=== PATIENT | female | born 2000 | race Caucasian/White ===

== ENCOUNTER → 2019-10-22 15:50 | Outpatient (CLI) | payer OTHER, MEDICAID, SELFPAY ==
[2019-10-22 17:47] LABS: Add Manual Diff / Slide Review NO; Basophils Absolute Auto 100 /uL (0-100); Basophils Percent Auto 0.5 % (0-2); Eosinophils Absolute Auto 300 /uL (0-450); Eosinophils Percent Auto 3.1 % (2-4); Hematocrit 41.3 % (36-46); Hemoglobin 13.9 g/dL (12.0-16.0); Lymphocytes Absolute Auto 2900 /uL (1100-4500); Lymphocytes Percent Auto 28.4 % (25-40); Mean Corpuscular HGB Conc 33.7 % (30-36); Mean Corpuscular Hemoglobin 29.6 PG (26-34); Mean Corpuscular Volume 87.6 fL (80-100); Monocytes Absolute Auto 900 /uL (0-900); Monocytes Percent Auto 8.9 % (3-14); Neutrophils Absolute Auto 6100 /uL (1500-7000); Neutrophils Percent Auto 59.1 % (50-75); Platelet Count 302 X10^3/uL (150-400); Red Blood Cell Count 4.72 X10^6/uL (4.0-5.2); Red Cell Distribution Width 13.5 % (11.6-14.8); White Blood Cell Count 10.3 X10^3/uL (4.5-11.0)
[2019-10-22 17:52] LABS: Hemoglobin A1C% w Est Avg Glu 4.9 % (4.0-6.0)
[2019-10-22 18:54] LABS: Vitamin D 25 Hydroxy (D3) 13.9 ng/mL (30.0-100.0)
[2019-10-22 19:08] LABS: TSH w/ Reflex to FT4 3.37 uIU/mL (0.47-4.68)
== END ==
PROVIDERS: PCP Registered Nurse Diabetes Educator; Referring Provider Registered Nurse Diabetes Educator; Visit Provider Registered Nurse Diabetes Educator
DX: R63.5 Abnormal weight gain (principal); Z83.3 Family history of diabetes mellitus
CPT/HCPCS: 36415; 82306; 83036; 84443; 85025

== ENCOUNTER 2020-01-06 11:38 | Emergency (ER) | payer OTHER, MEDICAID, SELFPAY ==
[2020-01-06] VITALS (8 sets, daily range): BP systolic 110–143; BP diastolic 69–83; PULSE 73–96; RESP 16–18; TEMP 36.5; O2SAT 96–100; BMI 34.3
--- NOTE | 2020-01-06 12:37 | DI.CT.S_ITS ---
PROCEDURE: CT ABDOMEN PELVIS W CON INDICATIONS: RLQ pain with fever TECHNIQUE: After the administration of intravenous contrast, 5 mm thick sections acquired from the diaphragm to the symphysis. 5 mm coronal and sagittal reformats were acquired. For radiation dose reduction, the following was used: automated exposure control, adjustment of mA and/or kV according to patient size. COMPARISON: None. FINDINGS: Image quality: Excellent. ABDOMEN: Lung bases: Lung bases are clear. Heart size is normal. Solid organs: Very small portion of the hepatic dome excluded from the field of view. Liver is otherwise normal in size and enhancement. Unremarkable appearance of the gallbladder. Biliary system is non dilated. Pancreas enhances normally. Spleen is normal in size and enhancement. No adrenal nodules. Kidneys demonstrate normal size and enhancement, without hydronephrosis. Peritoneum and bowel: Bowel loops demonstrate normal wall thickness and caliber. Very mild fatty stranding along the anterior margin of the cecum and ascending colon. Appendix is normal in caliber. No free fluid or air. Nodes and vessels: No retroperitoneal or mesenteric adenopathy by size criteria. Aorta and inferior vena cava are normal in size. Miscellaneous: No ventral hernias. PELVIS: Genitourinary: Bladder wall thickness is normal. Unremarkable appearance of the uterus and ovaries. Miscellaneous: No inguinal hernias or adenopathy. Bones: No suspicious bony lesions. No vertebral body compression fractures. IMPRESSION: No evidence of acute appendicitis. Very mild fatty stranding along the anterior margin of the cecum and ascending colon. This could represent very mild or early colitis. Dictated by: Eusebio Page M.D. on 01/06/2020 at 12:50 Approved by: Eusebio Page M.D. on 01/06/2020 at 12:54
--- NOTE | 2020-01-06 12:40 | ED.ABDPAIN ---
HPI - Abdominal Pain General Chief Complaint: Abdominal Pain Stated Complaint: sharp pain rt side diarrhea, nausea/ fever Time Seen by Provider: 01/06/20 11:59 Source: patient Mode of arrival: Ambulatory Limitations: no limitations History of Present Illness HPI narrative: Patient is a 19-year-old female who presents with right lower quadrant pain which started yesterday. Last evening she noticed low-grade fever now she is actually in quite a bit of pain. She has not taken anything for pain or fever she is currently afebrile here. Pain started sort of in her middle abdomen is now very in her right lower quadrant. She feels a little nauseated but no vomiting she had 1 episode of diarrhea this morning. MD complaint: abdominal pain Onset (ago): day(s) Pain Consistency: constant Location: RLQ Severity: moderate Quality: cramping and aching Radiation: none Relieving factors: nothing Exacerbating factors: nothing Related Data Previous Rx's Medication Instructions Recorded levonorgestrel 0.15 mg-ethinyl 1 tab PO DAILY #91 each 10/25/18 estradiol 30 mcg tablets,3 mos pack(91) ergocalciferol (vitamin D2) 1,250 1,250 mcg PO QWEEK #12 cap 10/23/19 mcg (50,000 unit) capsule ciprofloxacin HCl [Cipro] 500 mg PO BID #14 tab 01/06/20 metronidazole [Flagyl] 500 mg PO TID #21 tab 01/06/20 Allergies Allergy/AdvReac Type Severity Reaction Status Date / Time pineapple Allergy Intermediate swollen Verified 10/22/19 14:56 tongue Review of Systems Review of Systems Narrative: GENERAL: Denies chills, fatigue, malaise, fever, sweats, travel HEENT: Denies sinus pain, ear pain, sore throat, difficulty swallowing, neck pain RESPIRATORY: Denies dyspnea, cough, wheezing, hemoptysis, sputum. CARDIOVASCULAR: Denies chest pain, palpitations, orthopnea, edema GASTROINTESTINAL: See HPI : Denies dysuria, frequency, incontinence, hematuria, urinary retention, flank pain. MUSCULOSKELETAL: Denies weakness, joint pain, or bony pain SKIN: No rash, no erythema, no pruritus NEUROLOGIC: Denies weakness, dizziness, headache, numbness, change in speech, confusion PSYCHIATRIC: No concerning psychosocial issues. 12 point review of systems is negative except for those stated above and HPI Patient History Medical History Acne (Chronic ~2013) Allergies (Chronic ~2014) Ankle pain (Chronic ~2017) Anxiety (Chronic ~2011) Depression (Chronic ~2011) Family history of diabetes mellitus (Acute) Heavy menstrual period (Chronic ~2014) Painful menstrual periods (Chronic ~2014) Vitamin D deficiency (Acute) Weight gain (Acute) Surgical History Anesthesia (Resolved) History of oral surgery (Resolved ~2013) Family History Father History of heart disease Mother Diabetes mellitus History of heart disease Mental health problem Fibromyalgia Brother Autism Grandfather Diabetes mellitus Hypertension Social History Smoking Status: Current some day smoker second hand exposure: Yes (couple times per week) alcohol intake: current (1-2x/month) substance use type: marijuana (A couple times a month) Smoking Status: Current some day smoker alcohol intake frequency: a few times a week Substance Use Type: marijuana Exam Initial Vital Signs Initial Vital Signs: Vital Signs Temperature 97.7 F 01/06/20 11:45 Pulse Rate 96 H 01/06/20 11:45 Respiratory Rate 16 01/06/20 11:45 Blood Pressure 143/74 H 01/06/20 11:45 Pulse Oximetry 100 01/06/20 11:45 GENERAL: Well-appearing, well-nourished and in no acute distress. HEENT: Head atraumatic,EOMI, pupils reactive, face symmetric, moist mucous membranes CARDIOVASCULAR: Regular rate and rhythm without murmurs, rubs or gallops. RESPIRATORY: Breath sounds equal bilaterally, no wheezes rales or rhonchi. ABDOMEN: Soft, tender right lower quadrant with some mild guarding : No CVA tenderness EXTREMITIES: Normal range of motion, no clubbing or edema. Neurovascularly intact NEUROLOGICAL: Alert and oriented x4.Normal gait and speech. SKIN: Warm, dry, no laceration, no petechiae, no rashes or lesions. Course Orders Ordered: ED Orders 01/06/20 11:51 Complete Blood Count AUTO DIFF Stat Comprehensive Metabolic Panel Stat Lipase Stat 01/06/20 12:37 CT abdomen pelvis w con Stat Discontinued Medications Sodium Chloride (Normal Saline 0.9%) 1,000 mls @ 150 mls/hr IV CONT MARIYA Last Admin: 01/06/20 12:48 Dose: 150 mls/hr Documented by: YOU Ketorolac Tromethamine (Toradol) 30 mg IV NOW ONE Stop: 01/06/20 12:37 Last Admin: 01/06/20 12:47 Dose: 30 mg Documented by: YOU Morphine Sulfate (Morphine) 2 mg IV NOW ONE Stop: 01/06/20 14:21 Last Admin: 01/06/20 14:23 Dose: 2 mg Documented by: YOU Vital Signs Vital signs: Vital Signs - 8 hr 01/06/20 11:45 01/06/20 11:57 01/06/20 12:00 Temperature 97.7 F Pulse Rate 96 H 85 87 Respiratory Rate 16 Blood Pressure 143/74 H 116/69 Pulse Oximetry 100 99 99 01/06/20 12:30 01/06/20 13:00 01/06/20 13:30 Temperature Pulse Rate 90 84 88 Respiratory Rate 17 17 Blood Pressure 120/82 122/76 128/83 Pulse Oximetry 96 97 99 01/06/20 14:00 01/06/20 14:30 Temperature Pulse Rate 73 79 Respiratory Rate 16 18 Blood Pressure 122/74 110/70 Pulse Oximetry 100 97 MDM - Abdominal Pain Lab Data Attestation: I reviewed the patient's lab results. Result diagrams: 01/06/20 11:51 01/06/20 11:51 Labs: Lab Results 01/06/20 01/06/20 Range/Units 11:51 11:51 WBC 10.3 (4.5-11.0) X10^3/uL RBC 4.51 (4.0-5.2) X10^6/uL Hgb 13.3 (12.0-16.0) g/dL Hct 39.3 (36-46) % MCV 87.1 (80-100) fL MCH 29.6 (26-34) PG MCHC 33.9 (30-36) % RDW 13.4 (11.6-14.8) % Plt Count 273 (150-400) X10^3/uL Neut % (Auto) 71.1 (50-75) % Lymph % (Auto) 20.2 L (25-40) % [place] % (Auto) 6.6 (3-14) % Eos % (Auto) 1.8 L (2-4) % Baso % (Auto) 0.3 (0-2) % Neut # (Auto) 7300 H (7548-2854) /uL Lymph # (Auto) 2100 (3972-1510) /uL [place] # (Auto) 700 (0-900) /uL Eos # (Auto) 200 (0-450) /uL Baso # (Auto) 0 (0-100) /uL Sodium 139 (137-145) mmol/L Potassium 4.0 (3.4-5.1) mmol/L Chloride 105 (98-107) mmol/L Carbon Dioxide 28 (22-32) mmol/L BUN 12 (7-17) mg/dL Creatinine 0.70 (0.52-1.04) mg/dL Estimated GFR > 60.0 (>60) mL/min BUN/Creatinine Ratio 17.1 (6-22) Glucose 108 H (70-100) mg/dL Calcium 9.2 (8.4-10.2) mg/dL Total Bilirubin 0.6 (0.2-1.3) mg/dL AST 24 (14-36) IU/L ALT 22 (<35) IU/L Alkaline Phosphatase 138 H (38-126) U/L Total Protein 8.7 H (6.3-8.2) g/dL Albumin 4.5 (3.5-5.0) g/dL Globulin 4.2 H (1.7-4.1) g/dL Albumin/Globulin Ratio 1.1 (1.0-2.8) Lipase 86 (23-300) U/L Point of care testing: Point of Care Testing Test Results Negative Urine Dip Bedside Urine Glucose 100 mg/dl Bedside Urine Ketone - Negative Urine Specific [place] 1.020 Bedside Urine Occult Blood - Negative Bedside Urine pH 7.0 Bedside Urine Protein - Negative Bedside Urine Urobilinogen - Negative Bedside Urine Nitrite - Negative Bedside Urine Leukocytes - Negative Esterase Imaging Data CT scan - abdomen/pelvis: Radiologist's Impression: PROCEDURE: CT ABDOMEN PELVIS W CON INDICATIONS: RLQ pain with fever TECHNIQUE: After the administration of intravenous contrast, 5 mm thick sections acquired from the diaphragm to the symphysis. 5 mm coronal and sagittal reformats were acquired. For radiation dose reduction, the following was used: automated exposure control, adjustment of mA and/or kV according to patient size. COMPARISON: None. FINDINGS: Image quality: Excellent. ABDOMEN: Lung bases: Lung bases are clear. Heart size is normal. Solid organs: Very small portion of the hepatic dome excluded from the field of view. Liver is otherwise normal in size and enhancement. Unremarkable appearance of the gallbladder. Biliary system is non dilated. Pancreas enhances normally. Spleen is normal in size and enhancement. No adrenal nodules. Kidneys demonstrate normal size and enhancement, without hydronephrosis. Peritoneum and bowel: Bowel loops demonstrate normal wall thickness and caliber. Very mild fatty stranding along the anterior margin of the cecum and ascending colon. Appendix is normal in caliber. No free fluid or air. Nodes and vessels: No retroperitoneal or mesenteric adenopathy by size criteria. Aorta and inferior vena cava are normal in size. Miscellaneous: No ventral hernias. PELVIS: Genitourinary: Bladder wall thickness is normal. Unremarkable appearance of the uterus and ovaries. Miscellaneous: No inguinal hernias or adenopathy. Bones: No suspicious bony lesions. No vertebral body compression fractures. IMPRESSION: No evidence of acute appendicitis. Very mild fatty stranding along the anterior margin of the cecum and ascending colon. This could represent very mild or early colitis. Dictated by: Eusebio Page M.D. on 01/06/2020 at 12:50 Approved by: Eusebio Page M.D. on 01/06/2020 at 12:54 MDM Narrative Medical decision making narrative: Patient has no leukocytosis she is afebrile she is in quite a bit of pain colitis is found on CT. I discussed with her holding off antibiotics for the next few days to see if conservative management will help. However I will give her prescription for Cipro and Flagyl if pain continues to worsen Discharge Plan Departure Patient Disposition: Home Clinical Impression: Colitis Discharge Date/Time: 01/06/20 14:57 Instructions: DI for Colitis Activity Restrictions/Additional Instructions: *You have been diagnosed with colitis *What to do: At this time I recommend watchful waiting I have rate you prescription for antibiotics however I would prefer if you would wait a couple of days to see if her body heals itself. Blood work is overall reassuring *Continue to take medications as directed--> sent to [facility] in [place] Cipro 500 mg twice a day for 7 days Flagyl 500 mg 3 times a day for 7 days Ibuprofen 800 mg every 8 hours if needed for [id number] pain Tylenol 1000 mg every 6 hours if needed for [id number] pain *Follow up with your primary care provider in 2-3 days *Return to ER if you should have increased pain, bloody stools, fever, inability to tolerate fluids or any new, worsening or concerning symptoms Prescriptions: New ciprofloxacin HCl [Cipro] 500 mg tablet 500 mg PO BID Qty: 14 RF: 0 metronidazole [Flagyl] 500 mg tablet 500 mg PO TID Qty: 21 RF: 0 No Action ergocalciferol (vitamin D2) 1,250 mcg (50,000 unit) capsule 1,250 mcg PO QWEEK Qty: 12 RF: 0 levonorgestrel-ethinyl estrad [Setlakin] 0.15 mg-30 mcg (91) tablets,dose pack,3 month 1 tab PO DAILY Qty: 91 RF: 3 Referrals: Arthur Guerra ARNP [Primary Care Provider] -
[2020-01-06 12:44] LABS: Add Manual Diff / Slide Review NO; Basophils Absolute Auto 0 /uL (0-100); Basophils Percent Auto 0.3 % (0-2); Eosinophils Absolute Auto 200 /uL (0-450); Eosinophils Percent Auto 1.8 % (2-4); Hematocrit 39.3 % (36-46); Hemoglobin 13.3 g/dL (12.0-16.0); Lymphocytes Absolute Auto 2100 /uL (1100-4500); Lymphocytes Percent Auto 20.2 % (25-40); Mean Corpuscular HGB Conc 33.9 % (30-36); Mean Corpuscular Hemoglobin 29.6 PG (26-34); Mean Corpuscular Volume 87.1 fL (80-100); Monocytes Absolute Auto 700 /uL (0-900); Monocytes Percent Auto 6.6 % (3-14); Neutrophils Absolute Auto 7300 /uL (1500-7000); Neutrophils Percent Auto 71.1 % (50-75); Platelet Count 273 X10^3/uL (150-400); Red Blood Cell Count 4.51 X10^6/uL (4.0-5.2); Red Cell Distribution Width 13.4 % (11.6-14.8); White Blood Cell Count 10.3 X10^3/uL (4.5-11.0)
[2020-01-06] MEDS: KETOROLAC 60 MG/2 ML VIAL 30 MG IV (12:47)
[2020-01-06] MEDS: SODIUM CHLORIDE 0.9% 1,000 ML 150 ML IV (12:48)
[2020-01-06 12:49] LABS: Alanine Aminotransferase 22 IU/L (<35); Albumin 4.5 g/dL (3.5-5.0); Albumin Globulin Ratio 1.1 (1.0-2.8); Alkaline Phosphatase 138 U/L (38-126); Aspartate Aminotransferase 24 IU/L (14-36); BUN Creatinine Ratio 17.1 (6-22); Bilirubin Total 0.6 mg/dL (0.2-1.3); Blood Urea Nitrogen 12 mg/dL (7-17); Calcium 9.2 mg/dL (8.4-10.2); Carbon Dioxide 28 mmol/L (22-32); Chloride 105 mmol/L (98-107); Estimated Glomerular Filt Rate > 60.0 mL/min (>60); Globulin 4.2 g/dL (1.7-4.1); Glucose 108 mg/dL (70-100); HEMOLYSIS < 15 (0-50); Lipase 86 U/L (23-300); Sodium 139 mmol/L (137-145); Total Protein 8.7 g/dL (6.3-8.2)
[2020-01-06] MEDS: MORPHINE 2 MG/ML INJ IV (14:23)
== END 2020-01-06 14:57 | disposition home or self-care (01) ==
PROVIDERS: Emergency Provider Emergency Medicine; PCP Registered Nurse Diabetes Educator
DX: K52.9 Noninfective gastroenteritis and colitis, unspecified (principal); R50.9 Fever, unspecified
CPT/HCPCS: 36415; 74177; 80053; 81003; 81025; 83690; 85025; 96374; 96375; 99284; J1885; J2270; Q9967

== ENCOUNTER → 2020-01-16 10:05 | Outpatient (CLI) | payer OTHER, MEDICAID, SELFPAY ==
[2020-01-16 11:53] LABS: Vitamin D 25 Hydroxy (D3) 52.9 ng/mL (30.0-100.0)
== END ==
PROVIDERS: PCP Registered Nurse Diabetes Educator; Referring Provider Registered Nurse Diabetes Educator; Visit Provider Registered Nurse Diabetes Educator
DX: E55.9 Vitamin D deficiency, unspecified (principal)
CPT/HCPCS: 36415; 82306

== ENCOUNTER 2020-02-16 16:48 | Emergency (ER) | payer OTHER, MEDICAID, SELFPAY ==
[2020-02-16 16:55] VITALS: BP 147/109; PULSE 100; RESP 18; TEMP 37.1; O2SAT 98; BMI 35.2
[2020-02-16 17:29] LABS: COVID19 -Nasal RAPID Negative (Negative)
--- NOTE | 2020-02-16 17:59 | PC.NURSE ---
pt here with redness and hives generalized on body that is painful and itchy.
--- NOTE | 2020-02-16 18:32 | ED.SKABFB ---
HPI - Skin/Abscess/Foreign Bdy <YULIANA Mason - Last Filed: 02/16/20 19:45> General Chief complaint: Skin/Abscess/Foreign Body Stated complaint: exposed to COVID, states has hives Time Seen by Provider: 02/16/20 17:23 Source: patient and family Mode of arrival: Ambulatory Limitations: no limitations History of Present Illness HPI narrative: The patient is a 19-year-old female current smoker who denies pertinent medical history presents with a chief complaint of a COVID exposure at work last week. 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 She also presents with a chief complaint of hives yesterday. She states that the hives discontinued last night. She was seen and evaluated in the emergency department last night, given a prescription of steroids, which she did not fill. She has not taken anything since leaving the outside hospital. She states that she was instructed to take Benadryl, but that made her sleepy. She does not know of any new exposures other than a new detergent. However she states that the detergent is hypoallergenic, however she used it just prior to the hives starting. She denies any swelling of her lips face or tongue. She denies any difficulty breathing. She states that she did have a slight cough yesterday, but does not have one today. Related Data Previous Rx's Medication Instructions Recorded levonorgestrel 0.15 mg-ethinyl 1 tab PO DAILY #91 each 10/25/18 estradiol 30 mcg tablets,3 mos pack(91) ergocalciferol (vitamin D2) 1,250 1,250 mcg PO QWEEK #12 cap 10/23/19 mcg (50,000 unit) capsule ciprofloxacin HCl [Cipro] 500 mg PO BID #14 tab 01/06/20 metronidazole [Flagyl] 500 mg PO TID #21 tab 01/06/20 Allergies Allergy/AdvReac Type Severity Reaction Status Date / Time pineapple Allergy Intermediate swollen Verified 02/16/20 16:55 tongue minocycline Allergy Verified 02/16/20 16:55 Review of Systems <YULIANA Mason - Last Filed: 02/16/20 19:45> Review of Systems Narrative: GENERAL: Denies chills, fatigue, malaise, fever, sweats. HEENT: Denies sinus pain, ear pain, sore throat, difficulty swallowing, dizziness. RESPIRATORY: See HPI CARDIOVASCULAR: Denies chest pain, palpitations, orthopnea, edema, GASTROINTESTINAL: Denies nausea, vomiting, abdominal pain, diarrhea, constipation, melena. : Denies dysuria, frequency, incontinence, hematuria, urinary retention. MUSCULOSKELETAL: denies weakness, joint pain, or bony pain SKIN: See HPI NEUROLOGIC: Denies weakness, headache, numbness, change in speech, confusion, seizures, incoordination. PSYCHIATRIC: No concerning psychosocial issues. 12 point review of systems is negative except for those stated above Patient History <YULIANA Mason - Last Filed: 02/16/20 19:45> Medical History Acne (Chronic ~2013) Allergies (Chronic ~2014) Ankle pain (Chronic ~2017) Anxiety (Chronic ~2011) Depression (Chronic ~2011) Family history of diabetes mellitus (Acute) Heavy menstrual period (Chronic ~2014) Painful menstrual periods (Chronic ~2014) Vitamin D deficiency (Acute) Weight gain (Acute) Surgical History Anesthesia (Resolved) History of oral surgery (Resolved ~2013) Family History Father History of heart disease Mother Diabetes mellitus History of heart disease Mental health problem Fibromyalgia Brother Autism Grandfather Diabetes mellitus Hypertension Social History Smoking Status: Current some day smoker second hand exposure: Yes (couple times per week) alcohol intake: current (1-2x/month) substance use type: marijuana (A couple times a month) Smoking Status: Current some day smoker alcohol intake frequency: a few times a week Substance Use Type: marijuana Exam <YULIANA Mason - Last Filed: 02/16/20 19:45> Narrative Exam Narrative: GENERAL: This is a well-nourished, well-developed patient, in no acute distress HEAD: Atraumatic. Normocephalic. No temporal or scalp tenderness. EYES: Pupils equal round and reactive. Extraocular motions intact. No scleral icterus. No injection or drainage. ENT: Nose without bleeding, purulent drainage or septal hematoma. Throat without erythema, tonsillar hypertrophy or exudate. Uvula midline. Airway patent. No oropharyngeal swelling. NECK: Trachea midline. No JVD or lymphadenopathy. Supple, nontender, no meningeal signs. CARDIOVASCULAR: Regular rate and rhythm RESPIRATORY: Clear to auscultation. Breath sounds equal bilaterally. No wheezes, rales, or rhonchi. No cough. No increased respiratory effort. No accessory muscle use. GASTROINTESTINAL: Abdomen soft, non-tender, nondistended. No hepato-splenomegaly, or palpable masses. No guarding. EXTREMITIES: No clubbing, cyanosis, or edema. No joint tenderness, effusion, or edema noted. BACK: Nontender without deformity or crepitance. No flank tenderness. NEURO: AOx3. SKIN: Diffuse hives noted over abdomen, bilateral hips, bilateral upper arms. No hives noted on face. Initial Vital Signs Initial Vital Signs: Vital Signs Temperature 98.7 F 02/16/20 16:55 Pulse Rate 100 H 02/16/20 16:55 Respiratory Rate 18 02/16/20 16:55 Blood Pressure 147/109 H 02/16/20 16:55 Pulse Oximetry 98 02/16/20 16:55 <Albert Mendoza DO - Last Filed: 02/16/20 23:25> Initial Vital Signs Initial Vital Signs: Vital Signs Temperature 98.7 F 02/16/20 16:55 Pulse Rate 100 H 02/16/20 16:55 Respiratory Rate 18 02/16/20 16:55 Blood Pressure 147/109 H 02/16/20 16:55 Pulse Oximetry 98 02/16/20 16:55 Scores <YULIANA Mason - Last Filed: 02/16/20 19:45> GCS Chamberlain coma scale eye opening: Spontaneous Mireya coma scale verbal response: Orientated Mireya coma scale motor response: Obey commands Chamberlain coma scale total score: 15 Course <YULIANA Mason - Last Filed: 02/16/20 19:45> Orders Ordered: ED Orders 02/16/20 17:00 COVID19 Stat Discontinued Medications Diphenhydramine HCl (Benadryl) 50 mg PO NOW ONE Stop: 02/16/20 18:54 Last Admin: 02/16/20 19:14 Dose: 50 mg Documented by: MMINOR Famotidine (Pepcid Ac) 40 mg PO NOW ONE Stop: 02/16/20 18:55 Last Admin: 02/16/20 19:15 Dose: 40 mg Documented by: MMINOR Prednisone (Deltasone) 60 mg PO NOW ONE Stop: 02/16/20 18:54 Last Admin: 02/16/20 19:14 Dose: 60 mg Documented by: MMINOR Vital Signs Vital signs: Vital Signs - 8 hr 02/16/20 16:55 02/16/20 18:43 Temperature 98.7 F Pulse Rate 100 H 62 Respiratory Rate 18 18 Blood Pressure 147/109 H 117/64 Pulse Oximetry 98 98 <Albert Mendoza DO - Last Filed: 02/16/20 23:25> Orders Ordered: ED Orders 02/16/20 17:00 COVID19 Stat Discontinued Medications Diphenhydramine HCl (Benadryl) 50 mg PO NOW ONE Stop: 02/16/20 18:54 Last Admin: 02/16/20 19:14 Dose: 50 mg Documented by: MMINOR Famotidine (Pepcid Ac) 40 mg PO NOW ONE Stop: 02/16/20 18:55 Last Admin: 02/16/20 19:15 Dose: 40 mg Documented by: MMINOR Prednisone (Deltasone) 60 mg PO NOW ONE Stop: 02/16/20 18:54 Last Admin: 02/16/20 19:14 Dose: 60 mg Documented by: MMINOR Vital Signs Vital signs: Vital Signs - 8 hr 02/16/20 16:55 02/16/20 18:43 Temperature 98.7 F Pulse Rate 100 H 62 Respiratory Rate 18 18 Blood Pressure 147/109 H 117/64 Pulse Oximetry 98 98 MDM - Skin/Abscess/Foreign Bdy <FELICIA Mason-MARY KAY - Last Filed: 02/16/20 19:45> Lab Data Labs: Lab Results 02/16/20 Range/Units 17:00 COVID-19 PCR Negative (Negative) MDM Narrative Medical decision making narrative: The patient is a 19-year-old female who presents with a chief complaint of an exposure to coronavirus as well as hives. She tests negative for coronavirus today. She has not appear systemically ill and is in no acute distress. She was seen and evaluated in outside facility yesterday. Records were obtained and was illustrated the patient received a prescription of a steroid taper which she did not fill. She has no signs of systemic allergic reaction, no difficulty breathing or swelling of her lips face or tongue. I discussed at length the importance of using the steroid taper, and she states she still has a prescription and can get it filled. I encouraged her to use H1 H2 blockers as well. Given that pharmacies are closed at this time, she was given doses of famotidine Benadryl and prednisone in the emergency department. Encouraged to follow up with primary care provider in the next few days. Discussed coming back to ER for acute concerns such as chest pain shortness of breath etcetera. Patient has no questions or concerns upon discharge and states understanding of return precautions as well as follow-up care. <Albert Mendoza, DO - Last Filed: 02/16/20 23:25> Lab Data Labs: Lab Results 02/16/20 Range/Units 17:00 COVID-19 PCR Negative (Negative) Discharge Plan Departure Patient Disposition: Home Clinical Impression: Acute urticaria, Exposure to COVID-19 virus Discharge Date/Time: 02/16/20 19:35 Instructions: Hives (Alternative Therapy), DI for Hives, Coronavirus Disease 2019 Activity Restrictions/Additional Instructions: Thank you for trusting us with your care today. As discussed you tested negative for coronavirus. Please continue to monitor for cough shortness of breath and other symptoms and be evaluated if your concerned. Regarding your hives, please fill the steroid prescription was given to you yesterday by the other hospital. I also suggest continuing Benadryl and H2 simon such as famotidine. This is available [id number]. Please come back to the emergency department for any acute concerns such as shortness of breath swelling of the lips face or tongue. Prescriptions: No Action ergocalciferol (vitamin D2) 1,250 mcg (50,000 unit) capsule 1,250 mcg PO QWEEK Qty: 12 RF: 0 levonorgestrel-ethinyl estrad [Setlakin] 0.15 mg-30 mcg (91) tablets,dose pack,3 month 1 tab PO DAILY Qty: 91 RF: 3 ciprofloxacin HCl [Cipro] 500 mg tablet 500 mg PO BID Qty: 14 RF: 0 metronidazole [Flagyl] 500 mg tablet 500 mg PO TID Qty: 21 RF: 0 Referrals: Arthur Guerra ARNP [Primary Care Provider] - <Albert Mendoza DO - Last Filed: 02/16/20 23:25> Cosign ED Attending Cosignature Attestation: Dr Mendoza Co-Sign Statement: I was available for consultation during this patient's emergency department visit. This chart is signed by myself for administrative purposes only. I did not have direct contact with this patient during this visit. They were seen independently by the APC.
[2020-02-16 18:43] VITALS: BP 117/64; PULSE 62; RESP 18; O2SAT 98
[2020-02-16] MEDS: diphenhydrAMINE 25 MG TABLET 50 MG PO (19:14)
[2020-02-16] MEDS: predniSONE 20 MG TABLET 60 MG PO (19:14)
[2020-02-16] MEDS: FAMOTIDINE 20 MG TABLET 40 MG PO (19:15)
== END 2020-02-16 19:35 | disposition home or self-care (01) ==
PROVIDERS: Emergency Medicine; Emergency Provider Nurse Practitioner Family; PCP Registered Nurse Diabetes Educator
DX: Z03.818 Encounter for observation for suspected exposure to other biological agents ruled out (principal); L50.9 Urticaria, unspecified
CPT/HCPCS: 87635; 99283; A9270

== ENCOUNTER 2024-01-08 09:31 | Emergency (ER) | payer OTHER, SELFPAY ==
[2024-01-08] VITALS (10 sets, daily range): BP systolic 104–142; BP diastolic 58–88; PULSE 56–82; RESP 16; TEMP 37.1; O2SAT 96–100; BMI 19.7
[2024-01-08] MEDS: ONDANSETRON 4 MG/2 ML INJ IV (10:57)
[2024-01-08 11:02] LABS: Add Manual Diff / Slide Review NO; Basophils Absolute Auto 0 /uL (0-100); Basophils Percent Auto 0.4 % (0-2); Eosinophils Absolute Auto 0 /uL (0-450); Hematocrit 42.3 % (36-46); Hemoglobin 14.7 g/dL (12.0-16.0); Lymphocytes Absolute Auto 1000 /uL (1100-4500); Lymphocytes Percent Auto 7.8 % (25-40); Mean Corpuscular HGB Conc 34.7 % (30-36); Mean Corpuscular Hemoglobin 31.3 PG (26-34); Mean Corpuscular Volume 90.2 fL (80-100); Monocytes Absolute Auto 500 /uL (0-900); Monocytes Percent Auto 3.7 % (3-14); Neutrophils Absolute Auto 11500 /uL (1500-7000); Neutrophils Percent Auto 88.1 % (50-75); Platelet Count 245 X10^3/uL (150-400); Red Blood Cell Count 4.69 X10^6/uL (4.0-5.2); Red Cell Distribution Width 12.3 % (11.6-14.8)
[2024-01-08 11:11] LABS: Alanine Aminotransferase 34 IU/L (<35); Albumin 4.8 g/dL (3.5-5.0); Albumin Globulin Ratio 1.4 (1.0-2.8); Alkaline Phosphatase 104 U/L (38-126); Aspartate Aminotransferase 34 IU/L (14-36); BUN Creatinine Ratio 9.6 (6-22); Bilirubin Total 0.7 mg/dL (0.2-1.3); Blood Urea Nitrogen 10 mg/dL (7-17); Calcium 9.9 mg/dL (8.4-10.2); Carbon Dioxide 30 mmol/L (22-32); Chloride 102 mmol/L (98-107); Estimated Glomerular Filt Rate > 60 mL/min (>60); Globulin 3.4 g/dL (1.7-4.1); Glucose 142 mg/dL (70-100); HEMOLYSIS < 15 (0-50); Lipase 100 U/L (23-300); Sodium 141 mmol/L (137-145); Total Protein 8.2 g/dL (6.3-8.2)
[2024-01-08 11:40] LABS: Amorphous Sediment Urine 2+; Bacteria Urine None Seen; Culture Indicated Urine Cult Not Indicated; RBC Urine >100/HPF (0-5/HPF); Squamous Epithelial Cell Urine 0-1 /HPF (0-5/HPF); Urine Volume 10mL (spun); WBC Urine 1-5/HPF (0-5/HPF)
--- NOTE | 2024-01-08 12:14 | ED_ITS ---
HPI - Abdominal Pain General Chief Complaint: Abdominal Pain Stated Complaint: left side abd pain Time Seen by Provider: 01/08/24 11:41 Source: patient Mode of arrival: Family Vehicle History of Present Illness HPI narrative: Patient is a 23-year-old female to male transgender presenting today with left lower quadrant pain. Has not had any previous surgeries is currently taking testosterone and minoxidil. Reports that last night at 2:00 a.m. started having left flank pain radiating ribs the stomach. Was quite intense with some episodes of nausea. No prior history of kidney stones. No significant pain now. Denies painful frequent urination. Related Data Previous Rx's Medication Instructions Recorded levonorgestrel 0.15 mg-ethinyl 1 tab PO DAILY #91 ea 10/25/18 estradiol 30 mcg tablets,3 mos pack(91) (Setlakin) ergocalciferol (vitamin D2) 1,250 1,250 mcg PO QWEEK #12 caps 10/23/19 mcg (50,000 unit) capsule ciprofloxacin HCl 500 mg tablet 500 mg PO BID #14 tabs 01/06/20 (Cipro) metronidazole 500 mg tablet 500 mg PO TID #21 tabs 01/06/20 (Flagyl) hydrocodone 5 mg-acetaminophen 325 1 tab PO Q6H PRN pain #14 tabs 01/08/24 mg tablet ondansetron 4 mg disintegrating 4 mg PO Q8H PRN nausea and 01/08/24 tablet vomiting #10 tabs Allergies Allergy/AdvReac Type Severity Reaction Status Date / Time pineapple Allergy Intermediate swollen Verified 01/08/24 10:00 tongue minocycline Allergy Verified 01/08/24 10:00 Patient History Medical History (Updated 01/08/24 @ 14:18 by Sharmila Reno DO) Vitamin D deficiency Family history of diabetes mellitus Weight gain Acne (~2013) Allergies (~2014) Depression (~2011) Anxiety (~2011) Ankle pain (~2017) Painful menstrual periods (~2014) Heavy menstrual period (~2014) Surgical History Anesthesia History of oral surgery (~2013) Family History Father History of heart disease Mother Diabetes mellitus History of heart disease Mental health problem Fibromyalgia Brother Autism Grandfather Diabetes mellitus Hypertension Social History Smoking Status: Current some day smoker second hand exposure: Yes (couple times per week) alcohol intake: current (1-2x/month) substance use type: marijuana (A couple times a month) Smoking Status: Current some day smoker alcohol intake frequency: a few times a week Substance Use Type: marijuana Exam Initial Vital Signs Initial Vital Signs: Vital Signs Temperature 98.7 F 01/08/24 09:57 Pulse Rate 56 L 01/08/24 09:57 Respiratory Rate 16 01/08/24 09:57 Blood Pressure 142/78 H 01/08/24 09:57 Pulse Oximetry 100 01/08/24 09:57 Oxygen Delivery Method Room Air 01/08/24 09:57 GENERAL: Alert well-appearing 23-year-old HEENT: Head atraumatic,EOMI, pupils reactive, face symmetric, moist mucous membranes CARDIOVASCULAR: Regular rate and rhythm without murmurs, rubs or gallops. RESPIRATORY: Breath sounds equal bilaterally, no wheezes rales or rhonchi. ABDOMEN: Soft, nontender. Normoactive bowel sounds all 4 quadrants. No guarding or rebound. : Mild left CVA tenderness EXTREMITIES: Normal range of motion, no clubbing or edema. Neurovascularly intact NEUROLOGICAL: Alert and oriented x4.Normal gait and speech. SKIN: Warm, dry, no laceration, no petechiae, no rashes or lesions. Course Orders Ordered: ED Orders 01/08/24 10:52 Complete Blood Count AUTO DIFF Stat Comprehensive Metabolic Panel Stat Lipase Stat 01/08/24 11:07 Urine Microscopic Stat 01/08/24 12:19 CT kidney ureter bladder (KUB) Stat Discontinued Medications Ketorolac Tromethamine (Ketorolac 30 Mg/Ml Vial) 15 mg IV NOW ONE Stop: 01/08/24 12:20 Last Admin: 01/08/24 12:29 Dose: 15 mg Documented By: NANCY Ondansetron HCl (Ondansetron 4 Mg/2 Ml Inj) 4 mg IV NOW PRN PRN Reason: Nausea And Vomiting Last Admin: 01/08/24 10:57 Dose: 4 mg Documented By: SPF Ondansetron HCl (Ondansetron 4 Mg Odt) 4 mg PO NOW PRN PRN Reason: Nausea And Vomiting Vital Signs Vital signs: Vital Signs - 8 hr 01/08/24 12:27 01/08/24 12:28 01/08/24 12:28 Pulse Rate 56 L 56 L Blood Pressure 138/85 Pulse Oximetry 100 98 Oxygen Delivery Method 01/08/24 12:30 01/08/24 12:30 01/08/24 12:43 Pulse Rate 63 64 Blood Pressure 132/88 Pulse Oximetry 98 97 Oxygen Delivery Method Room Air 01/08/24 12:43 01/08/24 13:00 01/08/24 13:00 Pulse Rate 56 L Blood Pressure 130/60 110/59 L Pulse Oximetry 97 Oxygen Delivery Method 01/08/24 13:30 01/08/24 13:30 01/08/24 14:00 Pulse Rate 57 L 82 Blood Pressure 104/58 L Pulse Oximetry 97 96 Oxygen Delivery Method Room Air 01/08/24 14:00 Pulse Rate Blood Pressure 125/62 Pulse Oximetry Oxygen Delivery Method MDM - Abdominal Pain Lab Data 01/08/24 10:52 01/08/24 10:52 Labs: Lab Results 01/08/24 01/08/24 Range/Units 10:52 11:07 WBC 13.0 H (4.5-11.0) X10^3/uL RBC 4.69 (4.0-5.2) X10^6/uL Hgb 14.7 (12.0-16.0) g/dL Hct 42.3 (36-46) % MCV 90.2 (80-100) fL MCH 31.3 (26-34) PG MCHC 34.7 (30-36) % RDW 12.3 (11.6-14.8) % Plt Count 245 (150-400) X10^3/uL Neut % (Auto) 88.1 H (50-75) % Lymph % (Auto) 7.8 L (25-40) % Howard % (Auto) 3.7 (3-14) % Eos % (Auto) 0.0 L (2-4) % Baso % (Auto) 0.4 (0-2) % Neut # (Auto) 29724 H (1543-2663) /uL Lymph # (Auto) 1000 L (1137-1223) /uL Howard # (Auto) 500 (0-900) /uL Eos # (Auto) 0 (0-450) /uL Baso # (Auto) 0 (0-100) /uL Sodium 141 (137-145) mmol/L Potassium 4.0 (3.4-5.1) mmol/L Chloride 102 (98-107) mmol/L Carbon Dioxide 30 (22-32) mmol/L BUN 10 (7-17) mg/dL Creatinine 1.04 (0.52-1.04) mg/dL Estimated GFR > 60 (>60) mL/min BUN/Creatinine Ratio 9.6 (6-22) Glucose 142 H (70-100) mg/dL Calcium 9.9 (8.4-10.2) mg/dL Total Bilirubin 0.7 (0.2-1.3) mg/dL AST 34 (14-36) IU/L ALT 34 (<35) IU/L Alkaline Phosphatase 104 (38-126) U/L Total Protein 8.2 (6.3-8.2) g/dL Albumin 4.8 (3.5-5.0) g/dL Globulin 3.4 (1.7-4.1) g/dL Albumin/Globulin Ratio 1.4 (1.0-2.8) Lipase 100 (23-300) U/L Urine RBC >100/hpf H (0-5/HPF) Urine WBC 1-5/hpf (0-5/HPF) Ur Squamous Epith Cells 0-1 /hpf (0-5/HPF) Amorphous Sediment 2+ Urine Bacteria None seen (None) Ur Culture Indicated? Cult not indicated Vol Urine Centrifuged 10ml (spun) Point of care testing: Point of Care Testing Test Results Negative Urine Dip Bedside Urine Glucose Negative Bedside Urine Bilirubin - Negative Bedside Urine Ketone - Negative Urine Specific [place] 1.015 Bedside Urine Occult Blood +++ Bedside Urine pH 9.0 Bedside Urine Protein + 30 Bedside Urine Urobilinogen - Negative Bedside Urine Nitrite - Negative Bedside Urine Leukocytes - Negative Esterase Imaging Data CT scan - abdomen/pelvis: Radiologist's Impression: PROCEDURE: CT KIDNEY URETER BLADDER (KUB) INDICATIONS: left flank pain TECHNIQUE: Axial sections were acquired from the lung bases to the pubic symphysis. Coronal and sagittal reformats were performed. For radiation dose reduction, the following was used: automated exposure control, adjustment of mA and/or kV according to patient size. COMPARISON: None. FINDINGS: Lower thorax: The lung bases are clear. Heart size normal. No hiatal hernia. Liver: Normal in size and attenuation. No contour deformity present. Biliary system: No calcified cholelithiasis or pericholecystic inflammation. No intra or extrahepatic bile duct dilatation. Pancreas: Unremarkable without mass or inflammation evident. Spleen: Normal in size and density. Adrenals: Normal morphology and density. Reproductive system: Unremarkable as visualized. Urinary system: 4 x 6 mm calculus in the proximal left ureter results in moderate left hydronephrosis and hydroureter. Calculus has average Hounsfield units of 1000 HU. Mild left renal edema and swelling present with perinephric stranding. 2 mm nonobstructing left renal calculus. No right renal calculi or hydronephrosis. Gastrointestinal system: The bowel is unremarkable without evidence of bowel obstruction or inflammation. The stomach appears unremarkable. Appendix: No findings to suggest acute appendicitis. Peritoneal spaces: No mesenteric or retroperitoneal adenopathy. No free air. No free fluid. Vasculature: The IVC, aorta and iliac vasculature are unremarkable. Abdominal wall: Abdominal wall intact without evidence of ventral or inguinal hernias. Musculoskeletal: Normal bone mineralization. No acute fractures. IMPRESSION: Left moderate hydronephrosis associated with 4 x 6 mm calculus in proximal left ureter Additional smaller nonobstructive calculi in left renal collecting system Approved by: Good Tellez M.D. on 01/08/2024 at 12:49 MDM Narrative Medical decision making narrative: Patient 23-year-old presenting today with left flank and left lower quadrant pain. Seems to be radiating coming and going. There is blood in urine. He is on testosterone no longer has been stressful periods. Multiple etiologies for patient's symptoms considered including, but not limited to: Nephrolithiasis diverticulitis ovarian cyst Prior Charts reviewed: Labs reviewed and interpreted by myself: CBC shows leukocytosis of 13 CMP within normal limits no LYNN Urinalysis negative for UTI but positive for blood, negative Imaging reviewed: CT confirms a 4 x 6 mm stone at proximal left ureter with mitral hydronephrosis Patient presenting with left-sided flank pain found to have a 4 x 6 mm stone with mild hydronephrosis. No LYNN or UTI. No need for antibiotics. Recommended supportive care at this time only. However I did recommend follow-up with Urology. Pain is much better after Toradol. Discharge Plan Departure Patient Disposition: Home Clinical Impression: Kidney stone on left side Instructions: DI for Kidney Stones Activity Restrictions/Additional Instructions: *You have been diagnosed with kidney stone *What to do: At this time you do have a large kidney stone on the left side. You may require stent. Please call and follow-up with urology *Continue to take medications as directed Zofran 4 mg every 8 hours for nausea or vomiting [place] 1 tablet every 6 hours for severe pain *Follow up with your primary care provider in 2-3 days or call [phone] De La Fuente for follow-up call tomorrow *Return to ER if you should have increasing pain persistent vomiting [or] any new, worsening or concerning symptoms Prescriptions: New hydrocodone-acetaminophen 5-325 mg tablet 1 tab PO Q6H PRN (Reason: pain) Qty: 14 0RF ondansetron 4 mg tablet,disintegrating 4 mg PO Q8H PRN (Reason: nausea and vomiting) Qty: 10 0RF No Action ergocalciferol (vitamin D2) 1,250 mcg (50,000 unit) capsule 1,250 mcg PO QWEEK Qty: 12 0RF levonorgestrel-ethinyl estrad [Setlakin] 0.15 mg-30 mcg (91) tablets,dose pack,3 month 1 tab PO DAILY Qty: 91 3RF ciprofloxacin HCl [Cipro] 500 mg tablet 500 mg PO BID Qty: 14 0RF metronidazole [Flagyl] 500 mg tablet 500 mg PO TID Qty: 21 0RF Referrals: Darron De La Fuente MD [Physician] - Arthur Guerra ARNP [Primary Care Provider] - Stand Alone Forms: Patient Portal/API
--- NOTE | 2024-01-08 12:19 | DI.CT.S_ITS ---
PROCEDURE: CT KIDNEY URETER BLADDER (KUB) INDICATIONS: left flank pain TECHNIQUE: Axial sections were acquired from the lung bases to the pubic symphysis. Coronal and sagittal reformats were performed. For radiation dose reduction, the following was used: automated exposure control, adjustment of mA and/or kV according to patient size. COMPARISON: None. FINDINGS: Lower thorax: The lung bases are clear. Heart size normal. No hiatal hernia. Liver: Normal in size and attenuation. No contour deformity present. Biliary system: No calcified cholelithiasis or pericholecystic inflammation. No intra or extrahepatic bile duct dilatation. Pancreas: Unremarkable without mass or inflammation evident. Spleen: Normal in size and density. Adrenals: Normal morphology and density. Reproductive system: Unremarkable as visualized. Urinary system: 4 x 6 mm calculus in the proximal left ureter results in moderate left hydronephrosis and hydroureter. Calculus has average Hounsfield units of 1000 HU. Mild left renal edema and swelling present with perinephric stranding. 2 mm nonobstructing left renal calculus. No right renal calculi or hydronephrosis. Gastrointestinal system: The bowel is unremarkable without evidence of bowel obstruction or inflammation. The stomach appears unremarkable. Appendix: No findings to suggest acute appendicitis. Peritoneal spaces: No mesenteric or retroperitoneal adenopathy. No free air. No free fluid. Vasculature: The IVC, aorta and iliac vasculature are unremarkable. Abdominal wall: Abdominal wall intact without evidence of ventral or inguinal hernias. Musculoskeletal: Normal bone mineralization. No acute fractures. IMPRESSION: Left moderate hydronephrosis associated with 4 x 6 mm calculus in proximal left ureter Additional smaller nonobstructive calculi in left renal collecting system Approved by: Good Tellez M.D. on 01/08/2024 at 12:49
[2024-01-08] MEDS: KETOROLAC 30 MG/ML VIAL 15 MG IV (12:29)
== END 2024-01-08 14:28 | disposition home or self-care (01) ==
PROVIDERS: Emergency Provider Emergency Medicine; PCP Registered Nurse Diabetes Educator
DX: N20.0 Calculus of kidney (principal); R79.89 Other specified abnormal findings of blood chemistry
CPT/HCPCS: 36415; 74176; 80053; 81003; 81015; 81025; 83690; 85025; 96374; 96375; 99284; J1885; J2405